=== PATIENT | male | born 1985 | race Caucasian/White ===

== ENCOUNTER 2024-12-09 08:11 | Emergency (ER) | payer MEDICAID, SELFPAY ==
--- NOTE | ~2024-12-09 | XR_ITS ---
EXAMINATION: XR CHEST 2 VIEWS HISTORY: cough known flu COMPARISON: There are no prior studies for comparison. FINDINGS: PA and lateral views of the chest are submitted. The lungs are expanded and clear. There is no pleural effusion, pneumothorax, or pulmonary vascular congestion. The heart is normal in size. The bones are intact. XR/XR chest 2V IMPRESSION: Normal examination of the chest. Electronically signed by: Narinder Ness MD 12/09/2024 08:51 AM [place]
[2024-12-09 08:20] VITALS: BP 153/107; PULSE 97; RESP 18; TEMP 36.5; O2SAT 99; BMI 33.0
--- OUTSIDE RECORDS SUMMARY | 2024-12-09 08:53 | XMS_ITS | Clinical Summary ---
Author Organization [employer] Address [address] [place] [address] Care Team Providers Care Orthopedic Coder Name Role Phone Unavailable Primary Care Provider Unavailabl e Social History Tobacco Use Types Packs/Day Years Used Date Smoking Tobacco: Never Assessed Sex and Gender Information Value Date Recorded Sex Assigned at Male 08/08/2022 10:18 AM EDT Legal Sex Male 10:18 AM EDT Gender Identity Male 08/08/2022 10:18 AM EDT Sexual Orientation Straight 08/08/2022 10 :18 AM EDT Last Filed Vital Signs Vital Sign Reading Time Taken Comments Blood Pressure 140/90 08/11/2020 12:11 AM EST Pulse - - Temperature - - Respiratory Rate - - Oxygen Saturation - - Inhaled Oxygen Concentration - - Weight - - Height - - Body Mass Index - - Plan of Treatment Health Maintenance Due Date Last Done Comments Depression Screening 1985 Lipid Panel 1985 Alcohol/Substance Use Screening 1997 Tobacco Screening 1997 Family Planning (PISQ) 2000 Hepatitis B Vaccines (1 of 3 - 19+ 3-dose series) 2004 DTaP/Tdap/Td Vaccines (2 - T d or Tdap) 07/02/2022 07/02/2012 COVID-19 Vaccine (3 - 2023-2 5 season) 2024 10/16/2021, 09/18/2021 Influenza Vaccine (#1) 2024 07/02/2012 Zoster Vaccines (1 of 2) 2035 RSV Patients and Patients Aged 60 years or older (1 - 1-dose 75+ series) 2060 HIB Vaccines Aged Out No longer eligi ble based on patient's age to complete this topic HPV Vaccines Aged Out No longer eligi ble based on patient's age to complete this topic Hepatitis A Vaccines Aged Out No long er eligible based on patient's age to complete this topic IPV Vaccines Aged Out No longer eligi ble based on patient's age to complete this topic Meningococcal Vaccine Aged Out No radha francisco eligible based on patient's age to complete this topic Pneumococcal Vaccine: Pediatrics (0 to 5 Years) and At-Risk Patients (6 to 49) Years) Aged Out No longer eligible b ased on patient's age to complete this topic RSV under 20 months Aged Out No longe r eligible based on patient's age to complete this topic Rotavirus Vaccines Aged Out No longer eligible based on patient's age to complete this topic
--- OUTSIDE RECORDS SUMMARY | 2024-12-09 08:53 | XMS_ITS | Encounter Summary ---
Author Organization [employer] [facility] Address [address] [place] [id number] Care Team Providers Care Robotics Application Engineer Name Role Phone Anna Gonzalez Primary Care Provider [phone] Encounter Details Date Type Department Care Team (Latest Contact Info) Description 08/27/2020 Abstract [facility] CONVERSIONS Dental, Provider, DDS Social History Tobacco Use Types Packs/Day Years Used Date Smoking Tobacco: Never Assessed Sex and Gender Information Value Date Recorded Sex Assigned at Male 08/08/2022 10:18 AM EDT Legal Sex Male 10:18 AM EDT Gender Identity Male 08/08/2022 10:18 AM EDT Sexual Orientation Straight 08/08/2022 10 :18 AM EDT documented as of this encounter Plan of Treatment Not on file documented as of this encounter Visit Diagnoses Not on filedocumented in this encounter Care Teams Robotics Application Engineer Relationship Specialty Start Date End Date Anna Gonzalez FNP [address] [place] [address] PCP - General Family Medicine 03/15/22 09/10/23 documented as of this encounter
[2024-12-09 09:13] LABS: Influenza A PCR NEGATIVE (Negative); Influenza B PCR NEGATIVE (Negative); Resp Syncy Virus RNA Qual PCR NEGATIVE (Negative); SARS COV2 PCR INHOUSE NEGATIVE (Negative)
--- NOTE | 2024-12-09 09:23 | ED_ITS ---
HPI - URI/Sore Throat General Chief Complaint: Upper Respiratory Symptoms Stated Complaint: coughing up blood Time Seen by Provider: 12/09/24 09:16 Source: patient Mode of arrival: ambulatory Limitations: no limitations History of Present Illness HPI Narrative: THIS IS A 39 YEARS OLD MALE PRESENTED TO THE EMERGENCY DEPARTMENT WITH COMPLAINING OF COUGH CONGESTION HE IS ALSO COMPLAINING OF BLOOD STREAK IN THE COUGH, HE DENIES ANY FEVER CHILLS VOMITING. HE STATES THAT HE WAS DIAGNOSED WITH INFLUENZA LAST WEEK MD elicited complaint: fever and cough Consistency: constant Severity: moderate Description of mucous: yellow Able to tolerate fluids by mouth: Yes Exacerbating factors: nothing Relieving factors: nothing Associated symptoms: denies other symptoms Related Data Previous Rx's ?Medication ?Instructions ?Recorded codeine 10 mg-guaifenesin 100 mg/5 5 ml PO Q6H PRN cough #200 mL 12/09/24 mL oral liquid (Guaifenesin AC) doxycycline monohydrate 100 mg 100 mg PO BID #14 caps 12/09/24 capsule Allergies Allergy/AdvReac Type Severity Reaction Status Date / Time penicillin G [PENICILLIN G] Allergy Unknown UNKNOWN Verified 12/09/24 09:51 Review of Systems Constitutional: Constitutional: Reports no additional constitutional complaints ENT: Reports system reviewed and no additional complaints, except as documented Neurologic: Reports system reviewed and no additional complaints, except as documented Psychiatric: Psychiatric: Reports no additional psychiatric complaints PMFSH Past Medical History PMFSH Narrative: HE DENIES ANY MAJOR MEDICAL PROBLEMS Social History Social History Smoked in Last 30 Days: No Use of substances other than those prescribed or required for medical reasons: No Advance Directives: No Advance Directives Information Provided: Yes Do you have a plan to hurt others: No Plan Physical Exam Vital Signs: Vital Signs: Last Vital Signs Temp 98.0 F 12/09/24 09:52 Pulse 88 12/09/24 09:52 Resp 20 12/09/24 09:52 BP 172/96 H 12/09/24 09:52 Pulse Ox 99 12/09/24 09:52 O2 Del Method Room Air 12/09/24 09:52 BMI result Body Mass Index 33.0 NO ACUTE DISTRESS Const: General: cooperative Nutritional Appearance: well nourished Orientation/consciousness: patient oriented x3 Limitations: no limitations HEENT: Head: Yes normal to inspection Ears: hearing grossly normal bilaterally General nose exam: Normal external nose present Face and sinus: Yes normal facial exam Neck: Neck: Yes normal visual inspection and Yes full ROM Chest: Chest palpation & inspection: normal inspection of the chest Resp: Effort & Inspection: normal respiratory effort Auscultation: clear to auscultation bilaterally Cardio: Jugular venous distension: no JVD Rate: regular rate Rhythm: regular rhythm GI: Inspection: Yes normal to inspection Palpation (GI): Soft to palpation, not firm and nontender Percussion: Yes normal to percussion Auscultation: normal bowel sounds Skin: General skin exam: no rashes or lesions noted Lesions: no lesions Rashes: no rashes Neuro: General: patient oriented x3 Medical Decision Making Medical Decision Making [facility] Narrative: PATIENT IS HERE WITH COUGH CONGESTION BLOOD STREAK IN THE SPUTUM WE WILL OBTAIN A CHEST X-RAY Differential Diagnosis Differential Diagnoses: The differential diagnosis associated with the presentation includes PNEUMONIA/PNEUMOTHORAX/URI/BRONCHITIS Lab Data [facility] Lab Attestation statement: I reviewed the patient's lab results. Labs: Lab Results 12/09/24 Range/Units 08:26 Influenza Type A (PCR) NEGATIVE (Negative) Influenza Type B (PCR) NEGATIVE (Negative) RSV RNA Qual (PCR) NEGATIVE (Negative) SARS-CoV-2 RNA (RT-PCR) NEGATIVE (Negative) Independent Interpretation I performed an independent interpretation of an: Plain X-Ray Interpretation: HISTORY: cough known flu COMPARISON: There are no prior studies for comparison. FINDINGS: PA and lateral views of the chest are submitted. The lungs are expanded and clear. There is no pleural effusion, pneumothorax, or pulmonary vascular congestion. The heart is normal in size. The bones are intact. XR/XR chest 2V IMPRESSION: Normal examination of the chest. Electronically signed by: Narinder Ness MD 12/09/2024 08:51 AM EST Dictated By: Narinder Ness MD Signed By: <Electronically sign Radiology Impression Discussion of test interpretation with radiology: I have reviewed the radiologist's reading. Independent Historian Clinical information obtained from an independent historian. History obtained from or confirmed by: Other (MOTHER) Prescription Management I considered prescription management with: Antibiotic Discharge Plan Discharge Clinical Impression: Bronchitis Patient Disposition: Home, Self-Care Instructions: Acute Bronchitis (ED) Additional Instructions: FOLLOW-UP WITH YOUR PRIMARY CARE PHYSICIAN, TAKE DOXYCYCLINE DIRECTED ALSO WE SENT A PRESCRIPTION FOR COUGH MEDICINE. Prescriptions: New doxycycline monohydrate 100 mg capsule 100 mg PO BID Qty: 14 0RF codeine-guaifenesin [Guaifenesin AC] 10-100 mg/5 mL liquid 5 ml PO Q6H PRN (Reason: cough) Qty: 200 0RF Interventions: ED Discharge Assessment Last Done: 12/09/24 09:52 Discharge Date/Time: 12/09/24 09:53 Print Language: Norwegian
[2024-12-09 09:46] VITALS: O2SAT 98
[2024-12-09 09:51] VITALS: BP 172/96; PULSE 88; RESP 20; TEMP 36.7; O2SAT 98
[2024-12-09 09:52] VITALS: BP 172/96; PULSE 88; RESP 20; TEMP 36.7; O2SAT 99
== END 2024-12-09 09:53 | disposition home or self-care (01) ==
PROVIDERS: Emergency Medicine; Emergency Provider Emergency Medicine
DX: J40 Bronchitis, not specified as acute or chronic (principal); R50.9 Fever, unspecified; Z11.52 Encounter for screening for COVID-19
CPT/HCPCS: 0241U; 71046; 99283; 99284

== ENCOUNTER → 2024-12-09 08:23 | Outpatient (BNV) | payer SELFPAY | PROVIDERS: Visit Provider Radiology Diagnostic Radiology | DX: R05.9 Cough, unspecified (principal) | CPT/HCPCS: 71046 ==